=== PATIENT | female | born 1955 | race Caucasian/White ===

== ENCOUNTER 2016-05-29 21:07 | Emergency (ER) | payer MEDICARE ==
[2016-05-30] MEDS ORDERED: SODIUM CHLORIDE 0.9% 1,000 ML ONE (01:35)
[2016-05-30] MEDS ORDERED: ONDANSETRON 4 MG VIAL ONE (01:35)
[2016-05-30] MEDS ORDERED: KETOROLAC 30 MG/ML VIAL ONE (02:15)
[2016-05-30] MEDS ORDERED: ALU/MAG/SIM 30 ML UDC ONE (03:10)
[2016-05-30] MEDS ORDERED: LIDOCAINE 2% VISC 15 ML UDC ONE (03:10)
== END 2016-05-30 03:42 | disposition home or self-care (01) ==
LOC: ER 21:07
CPT/HCPCS: 36415 ×2; 80053 ×2; 81001 ×2; 83690 ×2; 85025 ×2; 86677 ×2; 87088 ×2; 87804 ×2; 96361 ×2; 96374 ×2; 96375 ×2; 99284; J1885; J2405